=== PATIENT | female | born 1980 | race Two or more races ===

== ENCOUNTER → 2024-02-12 | Day surgery (SDC) | payer OTHER ==
[2024-02-10 11:44] LABS: Basophils # (auto) 0 10 ^3/uL (0-0.2); Eosinophils # (auto) 0.1 10 ^3/uL (0-0.8); Hemoglobin 13.4 g/dL (12.2-16.2); Monocytes # (auto) 0.2 10 ^3/uL (0-1.3)
[2024-02-10 11:46] LABS: Basophils % (auto) 0.8 % (0.0-2.0); Eosinophils % (auto) 1.8 % (0.0-7.0); Hematocrit 40.4 % (36.0-46.0); Lymphocytes # (auto) 1.3 10 ^3/uL (0.4-5.4); Lymphocytes % (auto) 26.9 % (10.0-50.0); Mean Corpuscular Hemoglobin 24.8 pg (28.0-32.0); Mean Corpuscular Hgb Conc. 33.1 g/dL (32.0-36.0); Monocytes % (auto) 5.1 % (0.0-12.0); Neutrophils # (auto) 3.1 10 ^3/uL (1.6-8.6); Neutrophils % (auto) 65.4 % (37.0-80.0); Nucleated Red Blood Cells % 0.1 %; Platelet Count (auto) 234 10^3/uL (140-450); Red Blood Cells 5.39 10^6/uL (4.0-5.20); Red Cell Distribution Width 14.1 % (11.8-14.3); White Blood Cell 4.7 10^3/uL (4.4-10.8)
[2024-02-10 11:59] LABS: INR 1.03 (0.9-1.15); Partial Thromboplastin Time 24.6 SEC (24.5-34.5); Prothrombin Time 10.9 sec (9.3-11.8)
[2024-02-10 12:04] LABS: Alanine Aminotransferase 16 U/L (7-40); Albumin 4.6 g/dL (3.2-4.8); Alkaline Phosphatase 52 U/L (46-116); Anion Gap 4 (5-15); Aspartate Aminotransferase 9 U/L (13-40); BUN/Creatinine Ratio 15.9 (10.0-20.0); Bilirubin, Total 0.6 mg/dL (0.2-1.0); Blood Urea Nitrogen 11 mg/dL (9-23); Calcium 9.9 mg/dL (8.7-10.4); Carbon Dioxide 30 mmol/L (20-31); Chloride 105 mmol/L (98-107); Glucose 94 mg/dL (74-106); Potassium 4.5 mmol/L (3.5-5.1); Sodium 139 mmol/L (136-145); Total Protein 7.4 g/dL (5.7-8.2)
[~2024-02-12] VITALS: Ht 160 cm; Wt 64.0 kg
[~2024-02-12] MED LIST: LEVO100T8 PO; SODIUM CHLORIDE LOCK 10 ML ONE
[2024-02-12 16:02] VITALS: PULSE 94; RESP 21; O2SAT 99
[2024-02-12] MEDS: MIDAZOLAM HCL 5 MG/ML-1ML VIAL ONE (16:04)
[2024-02-12] MEDS: diphenhdrAMINE HCL 50 MG/1 ML VL ONE (16:04)
[2024-02-12] MEDS: fentaNYL CITRATE 100 MCG/2 ML VL ONE (16:04)
[2024-02-12 16:25] VITALS: PULSE 65; RESP 12; TEMP 97.7; O2SAT 97
--- NOTE | 2024-02-12 16:27 | DVHOP2 ---
Operative Report DATE OF OPERATION: 02/12/24 PROCEDURE: Diagnostic Colonoscopy. PREOPERATIVE INDICATION: The patient is a 43 -year-old female undergoing colonoscopy for colon cancer screening with history of chronic constipation POSTOPERATIVE DIAGNOSES: 1. Patient had a somewhat long colon with mild tortuosity of the colon at the sigmoid and the splenic flexure 2. Trace internal hemorrhoids otherwise completely normal colonoscopy examination to the cecum and terminal ileum PROCEDURE PERFORMED BY: Flex Strauss M.D. SCOPE: Olympus videocolonoscope. ASA CLASS: 2. PREOPERATIVE MEDICATIONS: Versed 5 mg, Fentanyl 100 mcg, Benadryl 50 mg PROCEDURE IN DETAIL: After obtaining an informed consent, the patient was placed on left lateral decubitus position. She was then sedated with the above medications. A rectal examination was performed that was normal. The colonoscope was then passed through the anus into the rectosigmoid and through the descending, transverse, and ascending colon up to the cecum with visualization of the appendiceal orifice, base of the cecum and the ileocecal valve. The colonoscope was then withdrawn. The distal 5-10 cm of the terminal ileum were normal. No polyps masses or lesions were seen. There was no colitis. She had somewhat long left colon Patient had mild tortuosity of the splenic flexure and also of the sigmoid colon. On retroflexion and straight on view she had trace normal internal hemorrhoids The patient tolerated the procedure well without difficulty. WITHDRAWAL TIME: 7 minutes QUALITY OF THE PREP: [place] Bowel Prep score: 9. COMPLICATIONS : None SPECIMENS: None DISPOSITION: Stable D/C to home PLAN: 1. Repeat colonoscopy in 10 years 2. Resume GI soft diet advance as tolerated 3. Increase fluid and fiber intake and stool softeners 4. Outpatient follow up with me in 4-6 weeks to review results and discuss further management FLEX STRAUSS MD Feb 12, 2024 16:27
[2024-02-12 16:55] VITALS: BP 125/83; PULSE 66; RESP 14; O2SAT 97
== END | disposition home or self-care (01) ==
LOC: GI 11:36
PROVIDERS: ATTEND Internal Medicine Gastroenterology
DX: K59.09 Other constipation (principal); E03.9 Hypothyroidism, unspecified; Z79.890 Hormone replacement therapy; Z98.890 Other specified postprocedural states
CPT/HCPCS: 36415; 45378; 80053; 84702; 85025; 85610; 85730; J1200; J2250; J3010; 99152

== ENCOUNTER → 2024-06-15 | Outpatient (CLI) | payer OTHER ==
[~2024-06-15] MED LIST changes: -SODIUM CHLORIDE LOCK 10 ML ONE
[2024-06-16 08:07] LABS: Immunoglobulin A 287 mg/dL (87-352)
[2024-06-16 13:08] LABS: H. PYLORI UREA BREATH TEST Negative (Negative)
== END | disposition home or self-care (01) ==
LOC: LAB 11:39
PROVIDERS: ATTEND Internal Medicine Gastroenterology
DX: R10.13 Epigastric pain (principal)
CPT/HCPCS: 36415; 82784; 83013; 83516; 84443; 86003; 86255